=== PATIENT | female | born 1990 | race Hispanic/Latino ===

== ENCOUNTER 2018-07-10 00:26 | Emergency (ER) | payer OTHER ==
[~2018-07-10] VITALS: Ht 160 cm; Wt 95.7 kg
[~2018-07-10 00:26] MED LIST: CLIN300C8 PO; QUET50TA5 PO; SULF1TAB24 PO
[2018-07-10 00:43] VITALS: BP 126/84
--- NOTE | 2018-07-10 00:49 | NUR ---
ARRIVAL PT ARRIVED VIA WHEELCHAIR TO ER 5 WITH C/O DIZZINESS AND HEADACHE. PT IS 12 WEEKS 6 DAYS AT THIS TIME. STATES FELT PRESSURE BEHIND EYES AND IN HEAD, HAVING BLURRY VISION AT TIMES, AND IS LIGHT SENSITIVE. PT IN NO ACUTE DISTRESS AT THIS TIME. EDP NOTIFIED OF ARRIVAL.
[2018-07-10] MEDS ORDERED: NUBAIN IM STA (01:15)
[2018-07-10 01:21] VITALS: BP 127/78
--- NOTE | 2018-07-10 01:23 | ER.PDOC ---
General Chief Complaint: Headache Stated Complaint: DIZZY,HEADACHE,<20 WEEKS Time seen by MD: 01:05 Source: patient, family Exam Limitations: no limitations History of Present Illness Initial Comments Pt c/o bitemporal headache for past 3-4 hours, since she left work at the end of the shift.She denies any prior headaches of that type, denies NVD FC Severity/Quality: moderate Prior Headaches/Recent Trauma: no recent headache/trauma Associated Symptoms: denies symptoms Allergies: Coded Allergies: No Known Allergies (Unverified , 03/03/17) Home Meds Reported Medications Quetiapine Fumarate (SEROQUEL) 50 Mg Tablet, 50 MG PO HS, TABLET 03/03/17 Past Medical History Medical History: other Surgical History: cholecystectomy LMP (females 10-50): Social History Smoking: non-smoker Alcohol Use: none Drug Use: none Reviewed Nursing Reviewed: Vital Signs, Abn. Noted, Nursing Assessment Review of Systems Constitutional: denies no symptoms reported, denies see HPI, denies chills, denies diaphoresis, denies fever, denies malaise, denies weakness, denies other Eyes: denies no symptoms reported, denies see HPI, denies blindness, denies blurred vision, denies drainage, denies decreased acuity, denies foreign body sensation, denies inflammation, denies pain, denies photophobia, denies previous injury, denies shadows, denies tunnel vision, denies vision change, denies contact lenses, denies glasses, denies other Ears, Nose, Mouth, Throat: denies no symptoms reported, denies see HPI, denies ear pain, denies ear discharge, denies nose pain, denies nose discharge, denies epistaxis, denies mouth pain, denies mouth swelling, denies loose teeth, denies throat pain, denies throat swelling Respiratory: denies no symptoms reported, denies see HPI, denies cough, denies orthopnea, denies shortness of breath, denies stridor, denies wheezing, denies other Cardiovascular: denies no symptoms reported, denies see HPI, denies chest pain , denies edema, denies palpitations, denies syncope, denies other Gastrointestinal: denies no symptoms reported, denies see HPI, denies abdominal pain, denies constipation, denies diarrhea, denies nausea, denies vomiting, denies other Musculoskeletal: denies no symptoms reported, denies see HPI, denies back pain , denies gout, denies joint pain, denies joint swelling, denies muscle pain, denies muscle stiffness, denies neck pain, denies other Psychiatric/Neurological: denies no symptoms reported, denies see HPI, denies anxiety, denies depressed, denies emotional problems; headache; denies numbness , denies paresthesia, denies pre-existing deficit, denies seizure, denies tingling, denies tremors, denies weakness, denies other All Other Systems: Reviewed and Negative Physical Exam General Appearance: WD/WN, Mild Distress Head/Eyes: eyes nml inspection, no facial swelling, no nystagmus, PERRL ENT: nml ENT inspection, pharynx nml, purulent nasal discharge (mucosa erythematous and edematous with yellow thick DC) Neck: nml inspection, Supple Cardiovascular: Normal Peripheral Pulses, Regular Rate, Rhythm, No Edema, No Gallop, No JVD, No Murmur Respiratory: chest non-tender, lungs clear, normal breath sounds, no respiratory distress, no accessory muscle use Gastrointestinal: Normal Bowel Sounds, No Organomegaly, No Pulsatile Mass, Non Tender, Soft Back: Normal Inspection, No CVA Tenderness, No Vertebral Tenderness Extremities: Normal Range of Motion, Non-Tender, Normal Inspection, No Pedal Edema, No Calf Tenderness, Normal Capillary Refill Psychiatric: Alert, Oriented x 3 Cranial Nerves: Normal Hearing, Normal Speech, PERRL Coordination/Gait: Normal Finger to Nose, Normal Gait Motor/Sensory: No Motor Deficit, No Sensory Deficit, No Pronator Drift, Negative Babinski's Sign Skin: Warm/Dry, Normal Color Lymphatic: No Adenopathy Results/Orders Results/Orders Administered Medications Medications (Trade) Dose Ordered Sig/Jose Route PRN Reason Start Time Stop Time Status Last Admin Dose Admin Nalbuphine HCl (Nubain) 20 mg STAT STAT IM 07/10/18 01:15 07/10/18 01:20 DC 07/10/18 02:11 Ondansetron HCl (Zofran Odt) 8 mg Q4HR PRN SL NAUSEA / VOMITING 07/10/18 01:30 08/09/18 01:29 07/10/18 02:11 Progress Progress Recheck-pt feels much better after nubain and zofran. I reviewed need for followup and to return to ER if she gets worse Departure Time of Disposition: 02:41 Disposition: 01 HOME, SELF-CARE Impression: Primary Impression: Headache Condition: Stable Patient Instructions: Headache and Allergies Referrals: KACI LEGGETT GEOSPATIAL INFORMATION SCIENTIST (PCP) PRIMARY CARE PROVIDER Additional Instructions: call your OBGYN first thing Thursday morning for hunter appointment to recheck you Duration or Time Spent with Pa: 15 HIGINIO WILKES MD Jul 10, 2018 01:23
[2018-07-10] MEDS ORDERED: ZOFRAN ODT SL PRN (01:30)
[2018-07-10] MEDS ORDERED: ZOFRAN ODT ONE (01:55)
--- NOTE | 2018-07-10 02:11 | NUR ---
UPDATE PT GIVEN 2 COLD WASH CLOTHS AT THIS TIME. ONE APPLIED TO FOREHEAD/EYES, ONE APPLIED TO BACK OF NECK. PT STATES "THAT SEEMS TO BE HELPING A LOT."
[2018-07-10 03:36] VITALS: BP 127/78
== END 2018-07-10 03:05 | disposition home or self-care (01) ==
LOC: ER 00:26
DX: O26.892 Other specified pregnancy related conditions, second trimester (principal); R51 Headache; Z3A.14 14 weeks gestation of pregnancy; Z90.49 Acquired absence of other specified parts of digestive tract; Z79.899 Other long term (current) drug therapy
CPT/HCPCS: 96372; 99283; Q0162

== ENCOUNTER 2018-12-18 15:05 | Emergency (ER) | payer OTHER ==
[~2018-12-18] VITALS: Ht 157.5 cm; Wt 94.3 kg
[2018-12-18] MEDS ORDERED: ZOFRAN ODT SL STA (15:34)
[2018-12-18] MEDS ORDERED: TORADOL IM STA (15:34)
[2018-12-18 15:35] VITALS: BP 131/70
--- NOTE | 2018-12-18 15:36 | NUR ---
ARRIVAL PATIENT TO ROOM 7, ABULATORY, STATES THAT SHE HAD A BABY ONE WEEK AGO. PATIENT STARTED HAVING BILAT LEG SWELLING AND A HEADACHE ABOUT TWO DAYS AGO. PATIENT SEES DR. DE LA ROSA AND HE HAS BEEN OUT OF TOWN, PATIENT WENT TO [facility] AND WAS DISCHARGE. PATIENT STATES SHE JUST FEELS AWFUL ALL OVER. ASSESSMENT COMPELTED, CONNECTED TO ALL MONIOTRS. AWAITING MD LAKHANI.
[2018-12-18] MEDS ORDERED: TORADOL ONE (15:40)
[2018-12-18] MEDS ORDERED: ZOFRAN ODT ONE (15:40)
[2018-12-18 15:41] LABS: BILIRUBIN,URINE NEGATIVE (NEGATIVE); UROBILINOGEN,URINE NORMAL (NEGATIVE)
[2018-12-18 15:45] LABS: APPEARANCE,URINE CLEAR (CLEAR); UA COLOR YELLOW (YELLOW)
[2018-12-18 15:49] LABS: BASOPHIL % 0.4 % (0.0-0.2); EOSINOPHIL # 0.2 10^3/uL (0.0-0.2); EOSINOPHIL % 2.7 % (0.0-5.0); HEMOGLOBIN 12.1 g/dL (12.0-15.0); LYMPHOCYTES # 3.2 10^3/uL (1.0-4.8); LYMPHOCYTES % 37.6 % (24.0-44.0); MEAN CELL HGB 30.9 pg (26-34); MEAN CELL HGB CONCENTRATION 34.4 g/dL (33-37); MONOCYTES # 0.6 10^3/uL (0.3-0.8); MONOCYTES % 6.5 % (5.0-12.0); NEUTROPHIL # 4.4 10^3/uL (1.8-7.7); NEUTROPHILS % 52.1 % (41.0-85.0); RED CELL DISTRIBUTION WIDTH 12.1 % (11.5-14.5); WHITE BLOOD CELL 8.4 10^3/uL (4.5-11.0)
[2018-12-18 16:04] LABS: CALCIUM 8.7 mg/dL (8.4-10.5); CARBON DIOXIDE 22.5 mmol/L (20.0-32)
[2018-12-18 16:30] VITALS: BP 144/97
--- NOTE | 2018-12-18 16:43 | DIREP ---
PROCEDURE:CT HEAD OR BRAIN W/O CONTRAST COMPARISON:None. INDICATIONS:Headache TECHNIQUE:CT images were created without intravenous contrast. FINDINGS: VENTRICLES:The ventricles are normal in size and configuration. CEREBRUM:Normal cerebral morphology with appropriate muñoz white matter differentiation. CEREBELLUM:Negative. BRAINSTEM:Negative. BASAL CISTERNS:Negative. HEMORRHAGE:No MASS LESION:No ACUTE INFARCT:No SKULL:Normal. SINUSES:Normal. OTHER:None CONCLUSION:No acute intracranial abnormality. Dictated by: Chuck David M.D. on 12/18/2018 at 04:41 PM
--- NOTE | 2018-12-18 16:48 | NUR ---
EDP ON THE PHONE WITH BUDDY SEGURA
--- NOTE | 2018-12-18 16:49 | NUR ---
UPDATE EDP CALLING DR. BOSCH.
--- NOTE | 2018-12-18 17:00 | NUR ---
DR BOSCH STATES THAT THE PATIENT IS TO GO TO [facility] FOR DIRECT ADMIT TO THE OB FLOOR VIA EMS.
[2018-12-18] MEDS ORDERED: NUBAIN IV STA (17:10)
[2018-12-18] MEDS ORDERED: ROCEPHIN 1,000 MG in NS 100ML 100 ML IV STA (17:10)
[2018-12-18] MEDS ORDERED: NS 1000ML 1,000 ML IV STA (17:10)
[2018-12-18] MEDS ORDERED: ROCEPHIN ONE (17:11)
[2018-12-18] MEDS ORDERED: NS 1000ML 1,000 ML ONE (17:11)
[2018-12-18] MEDS ORDERED: NUBAIN ONE (17:12)
[2018-12-18] MEDS ORDERED: NS 250ML 250 ML IV ONE (17:13)
--- NOTE | 2018-12-18 17:21 | ER.PDOC ---
General Chief Complaint: General Complaint Stated Complaint: HEADACHE,EXTREMITIES SWELLING TRAVEL OUT OF US: No Time seen by MD: 14:00 Source: patient Exam Limitations: no limitations History of Present Illness Initial Comments Headache and leg swelling for past few days. Had C/S for her new baby [address] Archer in [place]. Severity: moderate Associated Symptoms: headaches, nausea/vomiting Allergies: Coded Allergies: No Known Allergies (Unverified , 03/03/17) Home Meds Reported Medications Quetiapine Fumarate (SEROQUEL) 50 Mg Tablet, 50 MG PO HS, TABLET 03/03/17 Past Medical History Medical History: no pertinent history Surgical History: cholecystectomy, LMP (females 10-50): this week Social History Smoking: non-smoker Alcohol Use: none Drug Use: none Review of Systems Constitutional: no symptoms reported EENTM: no symptoms reported Respiratory: no symptoms reported Cardiovascular: edema Gastrointestinal: no symptoms reported All Other Systems: Reviewed and Negative Physical Exam General Appearance: No Apparent Distress, WD/WN Neck: Non-Tender, Full Range of Motion, Supple, Normal Inspection Respiratory: chest non-tender, lungs clear, normal breath sounds, no respiratory distress CVS: reg rate & rhythm, no murmur, no gallop, pulses nml, nml capillary refill Gastrointestinal: Normal Bowel Sounds, No Organomegaly, No Pulsatile Mass, Other Back: Normal Inspection Extremities: Pedal Edema Neurologic/Psychiatric: forensic specialist II-XII NML as Tested Results/Orders Results/Orders Orders - SANTA SIEGEL MD Cbc With Auto Diff (12/18/18 15:34) Comprehensive Metabolic Panel (12/18/18 15:34) PT (12/18/18 15:34) Partial Thromboplastin Time. (12/18/18 15:34) Urinalysis (12/18/18 15:34) Ct Head Wo Contrast (12/18/18 15:34) Ketorolac Tromethamine (Toradol) (12/18/18 15:34) Ondansetron (Zofran Odt) (12/18/18 15:34) Ondansetron (Zofran Odt) (12/18/18 15:40) Ketorolac Tromethamine (Toradol) (12/18/18 15:40) Urine Culture (12/18/18 15:35) Nalbuphine Hcl (Nubain) (12/18/18 17:10) Ceftriaxone Sodium (Rocephin) (12/18/18 17:10) 0.9 % Sodium Chloride (Ns 1000ml) (12/18/18 17:10) 0.9 % Sodium Chloride (Ns 1000ml) (12/18/18 17:11) Ceftriaxone Sodium (Rocephin) (12/18/18 17:11) Nalbuphine Hcl (Nubain) (12/18/18 17:12) 0.9 % Sodium Chloride (Ns 250ml) (12/18/18 17:13) Vital Signs Date Time Temp Pulse Resp B/P (MAP) Pulse Ox O2 Delivery O2 Flow Rate FiO2 12/18/18 15:35 98.4 68 18 131/70 (90) 98 Room Air 98.4 12/18/18 15:30 98.4 68 18 98.4 12/18/18 15:30 98.4 73 18 98 Room Air 98.4 Administered Medications Medications (Trade) Dose Ordered Sig/Jose Route PRN Reason Start Time Stop Time Status Last Admin Dose Admin Ketorolac Tromethamine (Toradol) 60 mg STAT STAT IM 12/18/18 15:34 12/18/18 15:36 DC 12/18/18 15:49 60 MG Ondansetron HCl (Zofran Odt) 4 mg STAT STAT SL 12/18/18 15:34 12/18/18 15:36 DC 12/18/18 15:49 4 MG Laboratory Tests Test 12/18/18 15:35 12/18/18 15:40 Urine Collection Type UNKNOWN Urine Color YELLOW (YELLOW) Urine Appearance CLEAR (CLEAR) Urine Bilirubin NEGATIVE MG/DL (NEGATIVE) Urine Ketones NEGATIVE (NEGATIVE) Urine Specific [place] 1.015 (1.005-1.035) Urine pH 6 (5.0-6.0) Urine Protein NEGATIVE (NEGATIVE) Urine Urobilinogen NORMAL (NEGATIVE) Urine Nitrate NEGATIVE (NEGATIVE) Urine Leukocyte Esterase 100/ul 1+ (NEGATIVE) Urine Blood 250 4+ (NEGATIVE) H Urine RBC 2-5 RBC/HPF (NONE SEEN) Urine WBC 5-10 WBC/HPF (0-2) H Urine Squamous Epithelial Cells MODERATE #/HPF (FEW) Urine Bacteria FEW (NONE SEEN) H Urine Other #/HPF Urine Glucose NORMAL (NEGATIVE) White Blood Count 8.4 10^3/uL (4.5-11.0) Red Blood Count 3.91 10^6/uL (4.00-5.20) L Hemoglobin 12.1 g/dL (12.0-15.0) Hematocrit 35.2 % (36.0-46.0) L Mean Corpuscular Volume 90.0 fL (78-100) Mean Corpuscular Hemoglobin 30.9 pg (26-34) Mean Corpuscular Hemoglobin Concent 34.4 g/dL (33-37) Red Cell Distribution Width 12.1 % (11.5-14.5) Platelet Count 268 10^3/uL (150-400) Mean Platelet Volume 11.0 fL (7.8-11.0) Neutrophils (%) (Auto) 52.1 % (41.0-85.0) Lymphocytes (%) (Auto) 37.6 % (24.0-44.0) Monocytes (%) (Auto) 6.5 % (5.0-12.0) Neutrophils # (Auto) 4.4 10^3/uL (1.8-7.7) Lymphocytes # (Auto) 3.2 10^3/uL (1.0-4.8) Monocytes # (Auto) 0.6 10^3/uL (0.3-0.8) Absolute Immature Granulocyte (auto 0.06 10^3 u/L (0-2) Eosinophils % 2.7 % (0.0-5.0) Basophils % 0.4 % (0.0-0.2) H Basophils # 0.0 10^3/uL (0.0-0.1) Eosinophil Count 0.2 10^3/uL (0.0-0.2) Prothrombin Time 9.8 SEC (9.8-11.9) Prothrombin Time INR (Non-Therap) 1.0 PTT 24.3 SEC (24.67-30.72) Sodium Level 142 mmol/L (132-145) Potassium Level 3.9 mmol/L (3.6-5.2) Chloride Level 108.0 mmol/L (96-109) Carbon Dioxide Level 22.5 mmol/L (20.0-32) Anion Gap 15.4 Blood Urea Nitrogen 13 mg/dL (7-18) Creatinine 0.60 mg/dL (0.59-1.40) Estimated GFR () 142.0 (>/=60) BUN/Creatinine Ratio 21.0 Glucose Level 120 mg/dL (70-110) H Calcium Level 8.7 mg/dL (8.4-10.5) Total Bilirubin 0.2 mg/dL (0.2-1.0) Aspartate Amino Transferase (AST) 21 U/L (0-35) Alanine Aminotransferase (ALT) 37 U/L (12-78) Alkaline Phosphatase 60 U/L (50-136) Total Protein 6.2 g/dL (6.4-8.2) L Albumin 2.7 g/dL (3.4-5.0) L Globulin 3.5 Percent Immature Gran (Cell Imm) 0.70 % (0.00-0.50) H Progress Progress Patient transferred to [place] for Dr. Alonso electronic component processor for Dr. Archer EKG/XRAY/CT/US CT Comments: Normal CT head. Departure Time of Disposition: 17:20 Disposition: 02 XFER SHT-TRM HOSP Impression: Primary Impression: Pre-eclampsia Qualified Codes: O14.90 - Unspecified pre-eclampsia, unspecified trimester Condition: Stable Referrals: PCP,UNKNOWN (PCP) PRIMARY CARE PROVIDER Comments Transfer to [place] for Dr. Alonso. Duration or Time Spent with Pa: 60 mins SANTA SIEGEL MD Dec 18, 2018 17:21
--- NOTE | 2018-12-18 17:28 | NUR ---
IV Started a 20 gauge IV in the right arm x 1 attempt. No redness, pain or swelling at the site. IV flushes easily. Saline locked. LW
[2018-12-18 17:35] VITALS: BP 139/74
--- NOTE | 2018-12-18 17:35 | NUR ---
[facility] CALLED TO TRANSPORT PATIENT.
--- NOTE | 2018-12-18 17:46 | NUR ---
TYRONET CALLED TO [facility]ARZA.
--- NOTE | 2018-12-18 17:50 | NUR ---
EMS HERE TO RESUME CARE OF PATIENT.
[2018-12-18 17:53] VITALS: BP 144/97
== END 2018-12-18 17:50 | disposition short-term general hospital (02) ==
LOC: ER 15:05
DX: N39.0 Urinary tract infection, site not specified (principal); Z90.49 Acquired absence of other specified parts of digestive tract; Z79.899 Other long term (current) drug therapy; R79.1 Abnormal coagulation profile
CPT/HCPCS: 36415; 70450; 80053; 81000; 85025; 85610; 85730; 87086; 96365; 96372; 96375; 99285; J0696; J1885; J2300; J7030; J7050; Q0162

== ENCOUNTER 2019-11-28 19:10 | Emergency (ER) | payer OTHER ==
[~2019-11-28] VITALS: Ht 157.5 cm; Wt 93.0 kg
[2019-11-28 19:42] VITALS: BP 138/88
[2019-11-28 19:46] VITALS: BP 138/88
[2019-11-28] MEDS ORDERED: NORCO 7.5MG PO STA (19:49)
--- NOTE | 2019-11-28 19:52 | ER.PDOC ---
General Chief Complaint: Extremities Stated Complaint: HARD FALL TO KNEES,RIB PAIN,SHORT OF BREATH Time seen by MD: 19:45 Source: patient Exam Limitations: no limitations History of Present Illness Initial Comments s/p trip/fall yesterday onto L knee. Sustained abrasion to knee. Able to walk with difficulty due to pain. States worse today. Also notes pain L rib cage, no direct injury to that area/ Occurred: yesterday Severity: moderate Injuries/Pain Location: chest, lower extremity Context: Tripped Loss of Consciousness: No Loss of Consciousness Modifying Factors: improves with immobilization; worse with jarring, worse with movement, worse with rest; improves with other (weight bearing) Associated Symptoms: chest pain (L pleuritic rib pain), trouble walking (due to pain) Allergies: Coded Allergies: No Known Allergies (Unverified , 03/03/17) MEDS Reported Medications Quetiapine Fumarate (SEROQUEL) 50 Mg Tablet, 50 MG PO HS, TABLET 03/03/17 Past Medical History Medical History: no pertinent history Surgical History: cholecystectomy, , tubal Social History Alcohol Use: none Drug Use: none Review of Systems Constitutional: no symptoms reported Eyes: no symptoms reported Ears, Nose, Mouth, Throat: no symptoms reported Respiratory: no symptoms reported Cardiovascular: chest pain (L lat pleuritic) Gastrointestinal: no symptoms reported Genitourinary: no symptoms reported Musculoskeletal: see HPI, other (L knee) Skin: no symptoms reported Psychiatric/Neurological: no symptoms reported Physical Exam General Appearance: WD/WN, Moderate Distress Head: No Evidence of Injury Eyes: bilateral eye normal inspection Ears, Nose, Mouth, Throat: Hearing Grossly Normal, No Evidence of ENT Injury, No Dental Injury Neck: Non-Tender, Normal Alignment, Nexus criteria neg, Normal Inspection Cardiovascular/Respiratory: Rib Tenderness (L 10-12) Gastrointestinal: Normal Bowel Sounds, No Organomegaly, No Pulsatile Mass, Non Tender, Soft Back: Normal Inspection, No CVA Tenderness, No Vertebral Tenderness Extremities: Tenderness (L patella, prox fibula) Neurologic/Psychiatric: tactical air defense controller II-XII NML as Tested, No Motor/Sensory Deficits, Alert, Normal Mood/Affect, Oriented x 3 Skin: Other (Abrasion L patella) Results/Orders Results/Orders Orders - TRISTIN NEVILLE MD Hydrocodone/Acetaminophen ([place] 7.5mg) (11/28/19 19:49) Xr Ribs Lt (11/28/19 20:14) Xr Knee Lt 2v (11/28/19 20:14) Vital Signs Date Time Temp Pulse Resp B/P (MAP) Pulse Ox O2 Delivery O2 Flow Rate FiO2 11/28/19 20:45 97.9 95 16 151/70 (97) 99 Room Air 11/28/19 19:46 97.9 95 16 138/88 (105) 99 Room Air 11/28/19 19:42 97.9 95 16 99 Room Air 11/28/19 19:42 97.9 95 16 11/28/19 19:42 97.9 95 16 99 Administered Medications Medications (Trade) Dose Ordered Sig/Jose Route PRN Reason Start Time Stop Time Status Last Admin Dose Admin Acetaminophen/ Hydrocodone Bitart ([place] 7.5mg) 1 each OT STAT PO 11/28/19 19:49 11/28/19 19:50 UNV 11/28/19 20:40 1 EACH Departure Time of Disposition: 22:27 Disposition: 01 HOME, SELF-CARE Impression: Primary Impression: Contusion of left knee Additional Impression: Chest wall pain Condition: Stable Referrals: PCP,UNKNOWN (PCP) PRIMARY CARE PROVIDER Additional Instructions: Rx tylenol 3 Duration or Time Spent with Pa: 15 Problem Qualifiers Primary Impression: Contusion of left knee Encounter type: initial encounter Qualified Codes: S80.02XA - Contusion of left knee, initial encounter TRISTIN NEVILLE MD Nov 28, 2019 19:52
[2019-11-28] MEDS ORDERED: NORCO 7.5MG PO ONE (20:35)
[2019-11-28 20:45] VITALS: BP 151/70
--- NOTE | 2019-11-28 21:07 | DIREP ---
PROCEDURE:XRAY RIBS 3VWS-LT COMPARISON:None. INDICATIONS:fall, L chest wall pain FINDINGS: RIBS:No fracture. OTHER:No additional findings. CONCLUSION:No evidence of left rib fracture. Dictated by: Sav Dominguez M.D. on 11/28/2019 at 09:05 PM
--- NOTE | 2019-11-28 21:11 | DIREP ---
PROCEDURE:XRAY KNEE 2 VWS-LT COMPARISON:None. INDICATIONS:Fall on L knee, knee pain FINDINGS: BONES:Normal. JOINTS:Normal. SOFT TISSUES:Normal. OTHER:No additional findings. CONCLUSION:Negative exam Dictated by: Daphnie Hernandez M.D. on 11/28/2019 at 09:09 PM
[2019-11-28 21:45] VITALS: BP 140/79
[2019-11-28 22:30] VITALS: BP 140/90
== END 2019-11-28 22:42 | disposition home or self-care (01) ==
LOC: ER 19:10
DX: S80.02XA Contusion of left knee, initial encounter (principal); R07.81 Pleurodynia; Z79.899 Other long term (current) drug therapy; Z90.49 Acquired absence of other specified parts of digestive tract; W01.0XXA Fall on same level from slipping, tripping and stumbling without subsequent striking against object, initial encounter; Y93.89 Activity, other specified; Y92.89 Other specified places as the place of occurrence of the external cause; Y99.8 Other external cause status
CPT/HCPCS: 99284; 71100-LT; 73560-LT

== ENCOUNTER 2020-08-30 15:54 | Emergency (ER) | payer OTHER ==
[~2020-08-30] VITALS: Ht 157.5 cm; Wt 99.3 kg
[~2020-08-30 15:54] MED LIST changes: -CLIN300C8 PO; +CLIN300C9 PO
[2020-08-30 16:16] VITALS: BP 146/87
--- NOTE | 2020-08-30 16:56 | ER.PDOC ---
General Chief Complaint: General Complaint Stated Complaint: WEAK/DIZZY/HEADACHE/NAUSEA Time seen by MD: 16:51 Source: patient Exam Limitations: no limitations History of Present Illness Initial Comments Patient c/o malaise, subjective fever, ST, cough, nausea Timing/Duration: gradual Severity: moderate Associated Symptoms: fever/chills, sinus pain/drainage, sore throat, cough, hurts to breath, headache Worsen By: deep breathing Allergies: Coded Allergies: No Known Allergies (Unverified , 08/30/20) Home Meds Reported Medications Quetiapine Fumarate (SEROQUEL) 50 Mg Tablet, 50 MG PO HS, TABLET 03/03/17 Constitutional: chills, fever, malaise EENTM: nose congestion, throat pain Respiratory: cough, shortness of breath Cardiovascular: denies no symptoms reported, denies see HPI, denies chest pain, denies edema, denies irregular heart rate, denies lightheadedness, denies palpitations, denies syncope, denies other Gastrointestinal: nausea Genitourinary: denies no symptoms reported, denies see HPI, denies burning, denies dysuria, denies discharge, denies frequency, denies flank pain, denies hematuria, denies incontinence, denies pain, denies urgency, denies other Musculoskeletal: denies no symptoms reported, denies see HPI, denies back pain, denies gout, denies joint pain, denies joint swelling, denies muscle pain, denies muscle stiffness, denies neck pain, denies other Skin: denies no symptoms reported, denies see HPI, denies change in color, denies change in hair/nails, denies dryness, denies lesions, denies lumps, denies rash, denies other Psychiatric/Neurological: headache Endocrine: denies no symptoms reported, denies see HPI, denies excessive sweating, denies flushing, denies intolerance to cold, denies intolerance to heat, denies increased hunger, denies increased thrist, denies increased urine, denies unexplained weight gain, denies unexplaned weight loss, denies other All Other Systems: Reviewed and Negative Past Medical History Medical History: no pertinent history Surgical History: cholecystectomy, Family History Significant Family History: no pertinent family hx Social History Smoking: non-smoker Alcohol Use: none Drug Use: none Physical Exam General Appearance: alert, no distress Eye: eyes nml inspection, lids & conjunct. nml, PERRL, no nystagmus Ear: ear nml Nose: nose nml Throat: pharynx nml Neck: nml inspection, supple Respiratory: no resp.distress, breath sounds nml Abdomen: non-tender, no organomegaly CVS: reg rate & rhythm, heart sounds nml Skin: color nml, no rash, warm/dry Extremities: non-tender, no pedal edema NEURO/PSYCH: oriented x 3, motor nml Results/Orders Results/Orders Orders - AYAH CARRASQUILLO DO Influenza A&B (08/30/20 16:24) Strep Screen (08/30/20 16:24) Covid19 Antigen Teri Shivani (08/30/20 16:24) Vital Signs Date Time Temp Pulse Resp B/P (MAP) Pulse Ox O2 Delivery O2 Flow Rate FiO2 08/30/20 16:16 97.9 95 20 95 08/30/20 16:16 97.9 95 20 146/87 (106) 95 Room Air 08/30/20 16:16 97.9 95 20 Laboratory Tests Test 08/30/20 16:50 Influenza Type A Antigen NEGATIVE (NEG) Influenza B Immunofluorescence NEGATIVE (NEG) Group A Streptococcus Screen NEGATIVE (NEGATIVE) Progress Progress negative flu/strep/covid ER DEPART Departure Time of Disposition: 17:21 Disposition: 01 HOME, SELF-CARE Impression: Primary Impression: Viral syndrome Condition: Stable Patient Instructions: Viral Syndrome Referrals: PCP,UNKNOWN (PCP) PRIMARY CARE PROVIDER Additional Instructions: Return to ER if you experience any difficulty breathing or swallowing, or for any emergent concerns. Alternate Tylenol and Motrin per package instructions every 4 hours as needed for fever or body aches including headache. Follow up with your doctor next week for reevaluation. Duration or Time Spent with Pa: 15 min AYAH CARRASQUILLO DO Aug 30, 2020 16:56
[2020-08-30 17:23] VITALS: BP 120/82
== END 2020-08-30 17:30 | disposition home or self-care (01) ==
LOC: ER 15:54
DX: B34.9 Viral infection, unspecified (principal); J02.9 Acute pharyngitis, unspecified; R05 Cough; Z20.828 Contact with and (suspected) exposure to other viral communicable diseases
CPT/HCPCS: 36415; 87070; 87077; 87186; 87426; 87804; 87880; 99284

== ENCOUNTER 2020-12-17 10:41 | Emergency (ER) | payer OTHER, SELFPAY ==
[~2020-12-17] VITALS: Ht 162.6 cm; Wt 79.4 kg
[2020-12-17 10:51] VITALS: BP 101/49
--- NOTE | 2020-12-17 10:52 | ER.PDOC ---
General Chief Complaint: Requesting Medical Care Stated Complaint: ABD PAIN Time seen by MD: 10:44 Source: patient Exam Limitations: no limitations History of Present Illness Initial Comments This 30-year-old female comes in with complaint of irritation to her umbilicus. She stated she tried to clean it a few days ago. Then 2 days ago started noticing a slight mucopurulent discharge from her umbilicus and just general irritation inflammation. This morning she noted that it was all red around the external part of the umbilicus and was worried about getting a skin infection. A quick exam does confirm she does have a cellulitis around the umbilicus and the discharge looks somewhat fungal size but she just got a mixed fungal bacteri al infection. Timing/Duration: getting worse Severity/Quality: moderate Radiation: no radiation Associated Symptoms: denies symptoms Exacerbated by: nothing Relieved By: nothing Allergies: Coded Allergies: No Known Allergies (Unverified , 08/30/20) Home Meds Reported Medications Quetiapine Fumarate (SEROQUEL) 50 Mg Tablet, 50 MG PO HS, TABLET 03/03/17 Vital Signs First Vital Signs Date Time Temp Pulse Resp B/P (MAP) Pulse Ox O2 Delivery O2 Flow Rate FiO2 12/17/20 10:51 97.9 81 18 97 12/17/20 10:56 101/49 (66) Room Air Last Vital Signs Date Time Temp Pulse Resp B/P (MAP) Pulse Ox O2 Delivery O2 Flow Rate FiO2 12/17/20 10:56 97.9 81 18 101/49 (66) 97 Room Air Past Medical History Medical History: no pertinent history Surgical History: cholecystectomy, Social History Alcohol Use: none Drug Use: none Skin: see HPI All Other Systems: Reviewed and Negative Physical Exam General Appearance: No Apparent Distress, WD/WN HEENT: PERRL/EOMI, Normal ENT Inspection, TMs Normal, Pharynx Normal Neck: Non-Tender, Full Range of Motion, Supple, Normal Inspection Respiratory: chest non-tender, lungs clear, normal breath sounds, no respiratory distress, no accessory muscle use Cardiovascular: Normal Peripheral Pulses, Regular Rate, Rhythm, No Edema, No Gallop, No JVD, No Murmur Gastrointestinal: Normal Bowel Sounds, Non Tender, Soft Back: Normal Inspection, No CVA Tenderness, No Vertebral Tenderness Extremities: Normal Range of Motion, Non-Tender, Normal Inspection, No Pedal Edema, No Calf Tenderness, Normal Capillary Refill, Pelvis Stable 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 There is a discharge from the umbilicus that is mucosal purulent in nature. I suspect this to be a mixed bacterial fungal infection.) Lymphatic: No Adenopathy Results/Orders Results/Orders Vital Signs Date Time Temp Pulse Resp B/P (MAP) Pulse Ox O2 Delivery O2 Flow Rate FiO2 12/17/20 10:56 97.9 81 18 101/49 (66) 97 Room Air 12/17/20 10:51 97.9 81 18 12/17/20 10:51 97.9 81 18 97 ER DEPART Departure Time of Disposition: 11:07 Disposition: 01 HOME, SELF-CARE Impression: Primary Impression: Cellulitis Additional Impression: Fungal skin infection Condition: Stable Referrals: PCP,UNKNOWN (PCP) PRIMARY CARE PROVIDER Comments Cleocin 300mg, one po qid x 7d, Diflucan 150mg, one po qd x 3d Duration or Time Spent with Pa: 15m Problem Qualifiers ANABELA BERGER MD Dec 17, 2020 10:51
[2020-12-17 10:56] VITALS: BP 101/49
[2020-12-17 11:20] VITALS: BP 106/52
== END 2020-12-17 11:20 | disposition home or self-care (01) ==
LOC: ER 10:41
DX: L03.316 Cellulitis of umbilicus (principal); B36.9 Superficial mycosis, unspecified; Z79.899 Other long term (current) drug therapy; Z90.49 Acquired absence of other specified parts of digestive tract
CPT/HCPCS: 99283

== ENCOUNTER 2021-11-10 19:15 | Emergency (ER) | payer MEDICAID, OTHER ==
[~2021-11-10] VITALS: Ht 154.9 cm; Wt 74.8 kg
[~2021-11-10 19:15] MED LIST changes: +CLIN-109 PO; -CLIN300C9 PO
[2021-11-10] MEDS ORDERED: MOTRIN PO STA (19:35)
[2021-11-10] MEDS ORDERED: DECADRON PO STA (19:35)
[2021-11-10 19:38] VITALS: BP 160/108
--- NOTE | 2021-11-10 19:41 | ER.PDOC ---
General Chief Complaint: Requesting Medical Care Stated Complaint: COUGHING,SINUS Time seen by MD: 19:40 Source: patient Exam Limitations: no limitations History of Present Illness Initial Comments 31-year-old female presenting with cough, congestion and frontal sinus headache for almost a week. Patient states is progressively worsened since its onset. D escribed as a throbbing pulsating frontal headache radiating to ears, nasal congestion, cough. Patient has tried Sudafed and other [id number] medications without relief. States that symptoms worsen with coughing. Cough is nonproductive. Patient is vaccinated for COVID-19. No other complaints at this time Timing/Duration: gradual, last week Severity: moderate Associated Symptoms: earache, runny nose, sinus pain/drainage, sore throat, hoarseness, cough Allergies: Coded Allergies: No Known Allergies (Unverified , 08/30/20) Home Meds Reported Medications Quetiapine Fumarate (SEROQUEL) 50 Mg Tablet, 50 MG PO HS, TABLET 03/03/17 All Other Systems: Reviewed and Negative Past Medical History Medical History: no pertinent history Surgical History: cholecystectomy, Social History Drug Use: none Physical Exam General Appearance: alert, no distress Eye: eyes nml inspection, lids & conjunct. nml, PERRL, no nystagmus Ear: ear nml Nose: nose nml Throat: pharynx nml, airway nml Neck: nml inspection, supple Respiratory: no resp.distress, breath sounds nml Abdomen: non-tender, no organomegaly CVS: reg rate & rhythm, heart sounds nml Skin: color nml, no rash, warm/dry Extremities: non-tender, nml ROM, no pedal edema NEURO/PSYCH: oriented x 3, CN's nml as tested, motor nml, sensation nml, mood/affect nml Results/Orders Results/Orders Orders - EJESIEME,BETO C DO Covid19 Antigen Teri Shivani (11/10/21 19:35) Influenza A&B (11/10/21 19:35) Dexamethasone (Decadron) (11/10/21 19:35) Ibuprofen (Motrin) (11/10/21 19:35) Dexamethasone (Decadron) (11/10/21 19:53) Ibuprofen (Motrin) (11/10/21 19:54) Cbc With Auto Diff (11/10/21 19:58) Comprehensive Metabolic Panel (11/10/21 19:58) Xr Chest 1v (11/10/21 19:58) Saline Lock (11/10/21 19:58) Hcg Urine (11/10/21 19:58) Erythrocyte Sedimentation Rate (11/10/21 19:58) C-Reactive Protein (11/10/21 19:58) Ct Head Wo Contrast (11/10/21 19:58) Cta Head (11/10/21 19:58) Urinalysis (11/10/21 20:38) Urine Culture (11/10/21 20:13) Vital Signs Date Time Temp Pulse Resp B/P (MAP) Pulse Ox O2 Delivery O2 Flow Rate FiO2 11/10/21 19:38 98.1 89 14 160/108 (125) 98 Room Air 11/10/21 19:38 98.1 86 14 11/10/21 19:38 98.1 86 14 98 Administered Medications Medications (Trade) Dose Ordered Sig/Jose Route PRN Reason Start Time Stop Time Status Last Admin Dose Admin Dexamethasone (Decadron) 6 mg STAT STAT PO 11/10/21 19:35 11/10/21 19:37 DC 11/10/21 19:57 6 MG Ibuprofen (Motrin) 600 mg STAT STAT PO 11/10/21 19:35 11/10/21 19:37 DC 11/10/21 19:57 600 MG Laboratory Tests Test 11/10/21 19:30 11/10/21 20:13 Influenza Type A Antigen NEGATIVE (NEG) Influenza Type B Antigen NEGATIVE (NEG) SARS-CoV-2 Antigen (Rapid) NEGATIVE (NEGATIVE) White Blood Count 14.0 10^3/uL (4.5-11.0) H Red Blood Count 4.49 10^6/uL (4.00-5.20) Hemoglobin 13.9 g/dL (12.0-15.0) Hematocrit 41.3 % (36.0-46.0) Mean Corpuscular Volume 92.0 fL (78-100) Mean Corpuscular Hemoglobin 31.0 pg (26-34) Mean Corpuscular Hemoglobin Concent 33.7 g/dL (33-36.5) Red Cell Distribution Width 11.6 % (11.5-14.5) Platelet Count 227 10^3/uL (150-400) Mean Platelet Volume 11.3 fL (7.8-11.0) H Neutrophils (%) (Auto) 66.4 % (41.0-85.0) Lymphocytes (%) (Auto) 26.5 % (24.0-44.0) Monocytes (%) (Auto) 5.9 % (5.0-12.0) Neutrophils # (Auto) 9.3 10^3/uL (1.8-7.7) H Lymphocytes # (Auto) 3.71 10^3/uL1 (1.0-4.8) Monocytes # (Auto) 0.8 10^3/uL (0.3-0.8) Absolute Immature Granulocyte (auto 0.02 10^3 u/L (0-2) Absolute Eosinophils (auto) 0.1 10^3/uL (0.0-0.2) Immature Granulocytes % 0.10 % (0.00-0.50) Eosinophils % 0.9 % (0.0-5.0) Basophils % 0.2 % (0.0-0.2) Basophils # 0.0 10^3/uL (0.0-0.1) Erythrocyte Sedimentation Rate 7 mm/hr (0-20) Urine Collection Type CCMS Urine Color YELLOW Urine Appearance CLEAR Urine Bilirubin NEGATIVE (NEGATIVE) Urine Ketones NEGATIVE (NEGATIVE) Urine Specific [place] 1.025 (1.005-1.030) Urine pH 6.5 (4.5-8.0) Urine Protein NEGATIVE (NEGATIVE) Urine Urobilinogen 0.2 E.U./dL (0.2) Urine Nitrate NEGATIVE (NEGATIVE) Urine Leukocyte Esterase NEGATIVE (NEGATIVE) Urine Glucose (Auto)(UA) NEGATIVE (NEGATIVE) Urine Blood TRACE-INTACT (NEGATIVE) H Urine RBC 0-2 RBC/HPF (NONE SEEN) Urine WBC NONE SEEN WBC/HPF (0-2) Urine Squamous Epithelial Cells FEW (<=FEW) Urine Bacteria FEW (NONE SEEN) H Urine HCG, Qualitative NEGATIVE (NEGATIVE) Sodium Level 138 mmol/L (132-145) Potassium Level 3.7 mmol/L (3.6-5.2) Chloride Level 103.0 mmol/L (96-109) Carbon Dioxide Level 26.1 mmol/L (20.0-32) Anion Gap 12.6 Blood Urea Nitrogen 15 mg/dL (7-18) Creatinine 0.68 mg/dL (0.59-1.40) Estimated GFR () 120.6 (>/=60) Est GFR (CKD-EPI)(Non-Afr Cameroonian) 99.6 (>/=60) BUN/Creatinine Ratio 22.0 Glucose Level 112 mg/dL (70-110) H Calcium Level 8.6 mg/dL (8.4-10.5) Total Bilirubin 0.2 mg/dL (0.2-1.0) Aspartate Amino Transferase (AST) 12 U/L (0-35) Alanine Aminotransferase (ALT) 23 U/L (12-78) Alkaline Phosphatase 51 U/L (50-136) C-Reactive Protein 1.26 mg/dL (0.00-5.00) Total Protein 7.8 g/dL (6.4-8.2) Albumin 3.9 g/dL (3.4-5.0) Globulin 3.9 Albumin/Globulin Ratio 1.000 Progress Progress 31-year-old female presenting with cough congestion and frontal headache. Symptoms and findings here today is suggestive of sinusitis. Informed patient to continue Radha pot at home will send her home with Flonase and follow-up with her primary care doctor ER DEPART Departure Time of Disposition: 21:43 Disposition: 01 HOME / SELF CARE / HOMELESS Impression: Primary Impression: Sinusitis Condition: Improved Patient Instructions: Sinusitis, [id number] Referrals: PCP,UNKNOWN (PCP) PRIMARY CARE PROVIDER LANNY MOYER MD PRIMARY CARE PROVIDER Follow up in 2-3 days Additional Instructions: Use a Radha pot daily. Flonase as needed for mucosal edema but do not use for more than 5 days at a time. Duration or Time Spent with Pa: 80 min BETO LEYVA DO Nov 10, 2021 19:41
[2021-11-10] MEDS ORDERED: DECADRON ONE (19:53)
[2021-11-10] MEDS ORDERED: MOTRIN ONE (19:54)
--- NOTE | 2021-11-10 20:24 | DIREP ---
PROCEDURE:CHEST 1 VIEW COMPARISON:None. INDICATIONS:cough FINDINGS: LUNGS/PLEURA:No significant pulmonary parenchymal abnormalities. No effusions. VASCULATURE:Normal. Unremarkable pulmonary vasculature. CARDIAC:Normal. No cardiac silhouette abnormality or cardiomegaly. MEDIASTINUM:Normal. No visible mass or adenopathy. BONES:Normal. No fracture or visible bony lesion. OTHER:Negative. CONCLUSION:No acute pulmonary process. Dictated by: Carleen Gauthier M.D. on 11/10/2021 at 08:21 PM
[2021-11-10 20:33] LABS: BASOPHIL % 0.2 % (0.0-0.2); EOSINOPHIL # 0.1 10^3/uL (0.0-0.2); EOSINOPHIL % 0.9 % (0.0-5.0); LYMPHOCYTES # 3.71 10^3/uL1 (1.0-4.8); LYMPHOCYTES % 26.5 % (24.0-44.0); MONOCYTES # 0.8 10^3/uL (0.3-0.8); MONOCYTES % 5.9 % (5.0-12.0); NEUTROPHIL # 9.3 10^3/uL (1.8-7.7); NEUTROPHILS % 66.4 % (41.0-85.0); PLATELET COUNT 227 10^3/uL (150-400); RED CELL DISTRIBUTION WIDTH 11.6 % (11.5-14.5)
[2021-11-10 20:45] LABS: BILIRUBIN,URINE NEGATIVE (NEGATIVE); UROBILINOGEN,URINE 0.2 E.U./dL (0.2)
[2021-11-10 20:53] LABS: CARBON DIOXIDE 26.1 mmol/L (20.0-32)
--- NOTE | 2021-11-10 20:54 | DIREP ---
PROCEDURE:CT HEAD OR BRAIN W/O CONTRAST COMPARISON:[facility], CT, CT HEAD BRAIN W/O CONTRAST, 12/18/2018, 03:52 PM. INDICATIONS:Headache TECHNIQUE:CT images were created without intravenous contrast. FINDINGS: VENTRICLES:The ventricles are normal in size and configuration. CEREBRUM:Normal cerebral morphology with appropriate muñoz white matter differentiation. CEREBELLUM:Negative. BRAINSTEM:Negative. BASAL CISTERNS:Negative. HEMORRHAGE:No MASS LESION:No ACUTE INFARCT:No SKULL:Normal. SINUSES:Multiple occluded ethmoid air cells. Near complete occlusion of the left maxillary antrum, a air-fluid level in the right maxillary antrum. There is also an air-fluid level in the frontal sinus OTHER:None CONCLUSION:No hemorrhage, mass effect, or extra-axial fluid collection. Sinus disease. Dictated by: Bam Wilson MD on 11/10/2021 at 08:46 PM
--- NOTE | 2021-11-10 21:32 | DIREP ---
PROCEDURE:CT ANGIOGRAPHY HEAD CT-CTA HEAD W/WO CONTRAST COMPARISON:None. INDICATIONS:headache TECHNIQUE:Following the rapid infusion of intravenous contrast, 1.3 mm axial CTA images were obtained through the head and neck. Multiplanar and 3-D reconstructions were performed from source images. FINDINGS: NECK CTA: AORTIC ARCH:Normal configuration. RIGHT CAROTID:Unremarkable. LEFT CAROTID:Unremarkable. VERTEBRAL ARTERIES: Unremarkable. NECK TISSUES:Unremarkable. LUNGS:Unremarkable. MEDIASTINUM:Unremarkable. BONE:Unremarkable. HEAD CTA: INTERNAL CAROTIDS:Unremarkable. ANTERIOR CEREBRALS:Unremarkable. MIDDLE CEREBRALS:Unremarkable. VERTEBRALS/BASILAR:Unremarkable. POSTERIOR CEREBRALS:Unremarkable. PCOMM'S:Present HEAD SOFT TISSUES: Unremarkable. SINUSES:Mucosal thickening ethmoid, maxillary and frontal sinuses. CONCLUSION: 1. No intracranial abnormalities. 2. Normal vascularity in the head and neck. 3. Mucosal thickening in the ethmoid, maxillary and frontal sinuses consistent with sinusitis. Dictated by: Fan Richardson M.D. on 11/10/2021 at 09:28 PM
== END 2021-11-10 21:52 | disposition home or self-care (01) ==
LOC: ER 19:15
DX: J32.9 Chronic sinusitis, unspecified (principal); Z20.822 Contact with and (suspected) exposure to COVID-19; Z90.89 Acquired absence of other organs
CPT/HCPCS: 36415; 70450; 70496; 71045; 80053; 81001; 81025; 85025; 85651; 86140; 87086; 87426; 87804 ×2; 99285; J8540; Q9965